=== PATIENT | male | born 1990 | race Caucasian/White ===

== ENCOUNTER 2016-08-01 19:51 | Emergency (ER) | payer OTHER ==
[~2016-08-01] VITALS: Ht 175.3 cm; Wt 92.0 kg
[~2016-08-01 19:51] MED LIST: ALBU8.5H5 IH; CYCL-319 PO; DOCU-144 PO; HYDR-3498 PO; IBUP-1542 PO; PHEN-538 PO; POLY17PO6 PO; TAMS-14 PO; TRAM50TA2 PO
[2016-08-01 20:50] VITALS: Ht 175.3 cm; Wt 92.0 kg
[2016-08-01] MEDS ORDERED: CETI10CA PO (20:59)
[2016-08-01] MEDS ORDERED: AMO500 PO (20:59)
[2016-08-01] MEDS ORDERED: IBUP-1542 PO (20:59)
--- NOTE | 2016-08-01 21:06 | ERD ---
ER Documentation Chief Complaint Date/Time DATE: 08/01/16 TIME: 21:04 Chief Complaint Right ear pain and jaw pain HPI 26-year-old male presents to emergency department for complaints of right ear pain radiating into the right jaw area started yesterday. Patient discussed pain as throbbing pain, 6/10 scale, not better or worse with anything. Patient denies any ear discharge. Patient denies any fever or chills. Patient denies any trauma in the ear. Patient denies any foreign body sensation in the ear. ROS All systems reviewed and are negative except as per history of present illness. Medications Home Meds Active Scripts Amoxicillin* (Amoxicillin*) 500 Mg Cap, 500 MG PO TID for 10 Days, CAP Prov:NAEEM VASQUES NP 08/01/16 Ibuprofen* (Motrin*) 600 Mg Tab, 600 MG PO Q6H Y for PAIN AND OR ELEVATED TEMP, #30 TAB Prov:NAEEM VASQUES NP 08/01/16 Cetirizine Hcl* (Zyrtec*) 10 Mg Capsule, 10 MG PO DAILY, #30 TAB.CHEW Prov:NAEEM VASQUES NP 08/01/16 Tramadol HCl (Tramadol HCl) 50 Mg Tablet, 50 MG PO Q6 Y for PAIN, #20 TAB Prov:NAEEM VASQUES NP 03/20/16 Tamsulosin Hcl* (Flomax*) 0.4 Mg Cap.er.24h, 0.4 MG PO QPM, #10 CAP Prov:NAEEM VASQUES NP 03/20/16 Polyethylene Glycol* (Miralax*) 17 Gm Powd.pack, 17 GM PO DAILY, #7 Prov:NAEEM VASQUES NP 03/20/16 Phenazopyridine Hcl* (Pyridium*) 200 Mg Tab, 200 MG PO TID Y for URINARY PAIN, # 6 TAB Prov:NAEEM VASQUES NP 03/20/16 Docusate Sodium* (Colace*) 100 Mg Capsule, 100 MG PO TID, #30 CAP Prov:NAEEM VASQUES NP 03/20/16 Hydrocodone Bit-Acetaminophen* ([place]*) 5-325 Mg Tab, 1 TAB PO Q6 Y for PAIN, # 20 TAB Prov:NAEEM VASQUESSharonda [employer] REPA[employer]ER 08/08/15 Ibuprofen* (Motrin*) 600 Mg Tab, 600 MG PO Q6H Y for PAIN AND OR ELEVATED TEMP, #30 TAB Prov:NAEEM VASQUESSharonda [employer] REPA[employer]ER 08/08/15 Cyclobenzaprine Hcl* (Cyclobenzaprine Hcl*) 10 Mg Tablet, 5 MG PO TID, #15 TAB Prov:NAEEM VASQUESSharonda [employer] REPA[employer]ER 08/08/15 Reported Medications [None] Unknown Strength No Conflict Check 08/08/15 Albuterol Sulfate* (Albuterol Sulfate* HFA) 8.5 Gm Hfa.aer.ad, 2 PUFF IH Q4H Y for WHEEZING AND SOB, EA 02/24/14 Allergies Allergies: Coded Allergies: No Known Allergy (Unverified , 09/17/13) PMhx/Soc History of Surgery: Yes (CATERINA EYE SX.) Anesthesia Reaction: No Hx Neurological Disorder: No Hx Respiratory Disorders: Yes (ASTHMA) Hx Cardiac Disorders: No Hx Psychiatric Problems: No Hx Miscellaneous Medical Probl: No Hx Alcohol Use: No Hx Substance Use: No Hx Tobacco Use: No FmHx Family History: No coronary disease, No diabetes, No other Physical Exam Vitals Vital Signs Date Time Temp Pulse Resp B/P Pulse Ox O2 Delivery O2 Flow Rate FiO2 08/01/16 20:50 98.5 86 18 137/67 100 Physical Exam GENERAL: The patient is well developed and appropriate for usual state of health, in no apparent distress. HEENT: Atraumatic. Ears: Right ear tympanic membrane is noted to be erythematous and bulging. Normal left tympanic membrane, no erythema or bulging. No ear canal swelling. No ear discharge. Nose: normal nasal turbinates , no erythema or swelling. Normal nasal discharge. Throat: oropharynx clear. No tonsillar swelling or tonsillar exudates. No lymphadenopathy. CHEST: Clear to auscultation bilaterally. There are no rales, wheezes or rhonchi. HEART: Regular rate and rhythm. No murmurs, clicks, rubs or gallops. No S3 or S4. ABDOMEN: Soft, nontender and nondistended. Good bowel sounds. No rebound or guarding. No gross peritonitis. No gross organomegaly or masses. No Albert sign or McBurney point tenderness. BACK: No midline or flank tenderness. EXTREMITIES: Equal pulses bilaterally. There is no peripheral clubbing, cyanosis or edema. No focal swelling or erythema. Full range of motion. Grossly neurovascularly intact. NEURO: Alert and oriented. Cranial nerves 2-12 intact. Motor strength in all 4 extremities with 5/5 strength. Sensation grossly intact. Normal speech and gait. SKIN: There is no apparent rash or petechia. The skin is warm and dry. HEMATOLOGIC AND LYMPHATIC: There is no evidence of excessive bruising or lymphedema. No gross cervical, axillary, or inguinal lymphadenopathy. Procedures/MDM Medical decision making: Patient's symptoms of right ear pain most likely consistent with otitis media. No symptoms of otitis externa or mastoiditis. No foreign body. No TM perforation, no cerumen impaction. Amoxicillin Zyrtec and ibuprofen was given to the patient for treatment of symptoms. Patient was advised to follow-up with primary care doctor in 2-3 days, avoid using Q-tips in the ear. Patient was advised to return to emergency department for any worsening symptoms . Departure Diagnosis: Primary Impression: Right otitis media Otitis media type: serous Chronicity: acute Recurrence: not specified as recurrent Qualified Code: H65.01 - Right acute serous otitis media, recurrence not specified Condition: Stable Patient Instructions: Otitis Media, Abx Tx (Adult) NAEEM VASQUES NP Aug 01, 2016 21:06
== END 2016-08-01 21:06 | disposition home or self-care (01) ==
LOC: E/R 19:51
DX: H65.01 Acute serous otitis media, right ear (principal); J45.909 Unspecified asthma, uncomplicated
CPT/HCPCS: 99283

== ENCOUNTER 2016-08-11 19:09 | Emergency (ER) | payer OTHER ==
[~2016-08-11] VITALS: Ht 172.7 cm; Wt 92.0 kg
[~2016-08-11 19:09] MED LIST changes: +AMO500 PO; +CETI10CA PO
[2016-08-11 19:22] VITALS: Ht 172.7 cm; Wt 92.0 kg
[2016-08-11] MEDS ORDERED: NAPR-260 PO (21:11)
[2016-08-11] MEDS ORDERED: KETOROLAC 30 MG INJ IM STA (21:12)
--- NOTE | 2016-08-11 21:32 | ERD ---
ER Documentation Chief Complaint Date/Time DATE: 08/11/16 TIME: 21:29 Chief Complaint bilateral knee pain x 1 week, denies injury HPI This patient is a 26-year-old male with past medical history of asthma and bilateral knee pain presenting to the emergency department for bilateral knee pain worsening over the past week. The patient states he has had knee pain bilaterally for at least 2 years and he has had no new trauma or injuries. The patient has been taking [place] at home for the knee pain which she had had prescribed for her previous cause unrelated to his knee pain. The patient states he is a good pain relief with [place]. He states the symptoms are exacerbated by walking long distances. He describes the pain as sharp. He denies any falls, trauma, head injury, fevers, chills, swelling of the knees, or other symptoms at this time. ROS All systems reviewed and are negative except as per history of present illness. Medications Home Meds Active Scripts Naproxen* (Naprosyn*) 500 Mg Tablet, 500 MG PO BID Y for PAIN AND/OR INFLAMMATION, #30 TAB Prov:HE BRENNAN PA-C 08/11/16 Amoxicillin* (Amoxicillin*) 500 Mg Cap, 500 MG PO TID for 10 Days, CAP Prov:NAEEM VASQUES NP 08/01/16 Ibuprofen* (Motrin*) 600 Mg Tab, 600 MG PO Q6H Y for PAIN AND OR ELEVATED TEMP, #30 TAB Prov:NAEEM VASQUES NP 08/01/16 Cetirizine Hcl* (Zyrtec*) 10 Mg Capsule, 10 MG PO DAILY, #30 TAB.CHEW Prov:NAEEM VASQUES NP 08/01/16 Tramadol HCl (Tramadol HCl) 50 Mg Tablet, 50 MG PO Q6 Y for PAIN, #20 TAB Prov:NAEEM VASQUES NP 03/20/16 Tamsulosin Hcl* (Flomax*) 0.4 Mg Cap.er.24h, 0.4 MG PO QPM, #10 CAP Prov:NAEEM VASQUES NP 03/20/16 Polyethylene Glycol* (Miralax*) 17 Gm Powd.pack, 17 GM PO DAILY, #7 Prov:NAEEM VASQUES NP 03/20/16 Phenazopyridine Hcl* (Pyridium*) 200 Mg Tab, 200 MG PO TID Y for URINARY PAIN, # 6 TAB Prov:NAEEM VASQUES NP 03/20/16 Docusate Sodium* (Colace*) 100 Mg Capsule, 100 MG PO TID, #30 CAP Prov:NAEEM VASQUES NP 03/20/16 Hydrocodone Bit-Acetaminophen* ([place]*) 5-325 Mg Tab, 1 TAB PO Q6 Y for PAIN, # 20 TAB Prov:NAEEM VASQUES NP 08/08/15 Ibuprofen* (Motrin*) 600 Mg Tab, 600 MG PO Q6H Y for PAIN AND OR ELEVATED TEMP, #30 TAB Prov:NAEEM VASQUES NP 08/08/15 Cyclobenzaprine Hcl* (Cyclobenzaprine Hcl*) 10 Mg Tablet, 5 MG PO TID, #15 TAB Prov:NAEEM VASQUES NP 08/08/15 Reported Medications [None] Unknown Strength No Conflict Check 08/08/15 Albuterol Sulfate* (Albuterol Sulfate* HFA) 8.5 Gm Hfa.aer.ad, 2 PUFF IH Q4H Y for WHEEZING AND SOB, EA 02/24/14 Allergies Allergies: Coded Allergies: No Known Allergy (Unverified , 09/17/13) PMhx/Soc Medical and Surgical Hx: pt denies Surgical Hx History of Surgery: No Anesthesia Reaction: No Hx Neurological Disorder: No Hx Respiratory Disorders: Yes (Asthma) Hx Cardiac Disorders: No Hx Psychiatric Problems: No Hx Miscellaneous Medical Probl: No Hx Alcohol Use: No Hx Substance Use: Yes (THC) Hx Tobacco Use: Yes (THC only) Smoking Status: Current every day smoker FmHx Noncontributory for chief complaint Physical Exam Vitals Vital Signs Date Time Temp Pulse Resp B/P Pulse Ox O2 Delivery O2 Flow Rate FiO2 08/11/16 19:22 98.7 78 20 137/69 100 Physical Exam Const: The patient is resting comfortably in no acute distress. Head: Atraumatic Eyes: Normal Conjunctiva ENT: Normal External Ears, Nose and Mouth. Neck: Full range of motion..~ No meningismus. Resp: Clear to auscultation bilaterally Cardio: Regular rate and rhythm, no murmurs Abd: Soft, non tender, non distended. Normal bowel sounds Skin: No petechiae or rashes Back: No midline or flank tenderness Ext: There is no ecchymosis, erythema, warmth, or edema to the knees bilaterally. The patient has full active and passive range of motion of the knees bilaterally. Neur: Awake and alert Psych: Normal Mood and Affect Results 24 hrs Current Medications Medications (Trade) Dose Ordered Sig/Kathryn Route PRN Reason Start Time Stop Time Status Last Admin Dose Admin Ketorolac Tromethamine (Toradol) 30 mg ONCE STAT IM 08/11/16 21:12 08/11/16 21:13 DC 08/11/16 21:21 Procedures/MDM 26-year-old male presents secondary to complaints of bilateral knee pain ongoing for 2 years. The patient states pain is been worsening over the past week. On physical examination the patient's vitals are within normal limits. Patient has full active and passive range of motion of bilateral knees. There is no erythema, warmth, or edema to bilateral knees. I have low suspicion for fracture, ACL tear, MCL tear, septic joint, septic arthritis, bursitis, septicemia, or other emergent conditions at this time. I treated the patient in the department with IM Toradol and he was feeling improved on reevaluation. The patient is stable for outpatient management with a prescription for naproxen. The patient demonstrates good understanding of the discharge plan and diagnosis. All questions and concerns were addressed. The patient was hemodynamically stable prior to discharge. The patient was advised to return to the department with any new or worsening symptoms and he understands this information. The patient is to follow-up with his primary care physician. Departure Diagnosis: Primary Impression: Knee pain Laterality: bilateral Chronicity: chronic Qualified Code: M25.561 - Chronic pain of both knees Condition: Fair Patient Instructions: Knee Pain, Uncertain Cause Referrals: LISBETH MCKAY (PCP) [facility] YOU HAVE RECEIVED A MEDICAL SCREENING EXAM AND THE RESULTS INDICATE THAT YOU DO NOT HAVE A CONDITION THAT REQUIRES URGENT TREATMENT IN THE EMERGENCY DEPARTMENT. FURTHER EVALUATION AND TREATMENT OF YOUR CONDITION CAN WAIT UNTIL YOU ARE SEEN IN YOUR DOCTORS OFFICE WITHIN THE NEXT 1-2 DAYS. IT IS YOUR RESPONSIBILITY TO MAKE AN APPOINTMENT FOR FOLOW-UP CARE. IF YOU HAVE A PRIMARY DOCTOR --you should call your primary doctor and schedule an appointment IF YOU DO NOT HAVE A PRIMARY DOCTOR YOU CAN CALL OUR PHYSICIAN REFERRAL HOTLINE AT IF YOU CAN NOT AFFORD TO SEE A PHYSICIAN YOU CAN CHOSE FROM THE FOLLOWING [facility] [address] [facility] [address] [facility] [place] [address] [facility] [address] [facility] [address] [facility]. [facility] [address] Additional Instructions: Follow-up with your primary care physician within 1 week. Return to the emergency department immediately should you have any new or worsening symptoms, uncontrolled fevers, or other unexplained symptoms. Take all medications as directed. HE BRENNAN PA-C Aug 11, 2016 21:32
== END 2016-08-11 21:40 | disposition home or self-care (01) ==
LOC: FTE 19:09
DX: M25.561 Pain in right knee (principal); M25.562 Pain in left knee; J45.909 Unspecified asthma, uncomplicated; F17.210 Nicotine dependence, cigarettes, uncomplicated
CPT/HCPCS: 96372; J1885

== ENCOUNTER 2017-07-08 20:43 | Emergency (ER) | END 2017-07-09 00:29 | disposition home or self-care (01) ==

== ENCOUNTER 2018-03-03 14:09 | Emergency (ER) | END 2018-03-03 16:50 | disposition home or self-care (01) ==

== ENCOUNTER 2019-01-15 14:50 | Emergency (ER) | payer OTHER ==
[~2019-01-15] VITALS: Ht 175.3 cm; Wt 88.0 kg
[~2019-01-15 14:50] MED LIST changes: +ACET500C5 PO; -AMO500 PO; +AMOX500C2 PO; -CYCL-319 PO; +CYCL10TA7 PO; +ERYT1OIN6 LEFT EYE; +FAMO-96 PO; +NAPR-985 PO; +ONDA4TAB8 PO
[2019-01-15 15:03] VITALS: BP 131/63; PULSE 63; RESP 16; Ht 175.3 cm; Wt 88.0 kg
[2019-01-15] MEDS ORDERED: KETOROLAC 30 MG INJ IM STA (15:37)
[2019-01-15] MEDS ORDERED: DEXAMETHASONE 10 MG/ML 1 ML INJ IM ONE (16:00)
== END 2019-01-15 16:13 | disposition home or self-care (01) ==
LOC: FTE 14:50
DX: M54.5 Low back pain (principal); J45.909 Unspecified asthma, uncomplicated
CPT/HCPCS: 96372; J1100; J1885; Z7502